=== PATIENT | female | born 1970 | race African-American/Black ===

== ENCOUNTER 2016-07-30 10:48 | Emergency (ER) | payer MEDICARE ==
[~2016-07-30] VITALS: Ht 162.6 cm; Wt 108.0 kg
[2016-07-30 11:07] VITALS: BP 186/104
[2016-07-30] MEDS ORDERED: ERYT1OIN6 EACHEYE (12:14)
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
== END 2016-07-30 12:21 | disposition home or self-care (01) ==
LOC: ER 10:48
DX: H10.33 Unspecified acute conjunctivitis, bilateral (principal); F31.9 Bipolar disorder, unspecified; I10 Essential (primary) hypertension; F17.210 Nicotine dependence, cigarettes, uncomplicated; Z91.018 Allergy to other foods
CPT/HCPCS: 99283

== ENCOUNTER 2019-03-15 01:54 | Emergency (ER) | payer MEDICARE ==
[~2019-03-15] VITALS: Ht 172.7 cm; Wt 108.0 kg
[~2019-03-15 01:54] MED LIST: ERYT1OIN6 EACHEYE
[2019-03-15] MEDS ORDERED: cloNIDine HCL 0.1 MG TABLET PO ONE (03:00)
[2019-03-15] MEDS ORDERED: TRAM50TA PO (03:02)
[2019-03-15] MEDS ORDERED: NAPR-683 PO (03:02)
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
[2019-03-15 03:35] VITALS: BP 171/96
--- NOTE | 2019-03-15 03:35 | RAD ---
KNEE LEFT 3V History: Knee pain. Swelling. Technique: 3 views left knee. Comparison: None. Findings: Normal alignment. No fracture. Mild to moderate medial and patellofemoral compartment DJD with marginal osteophyte formation and joint space narrowing. Small knee joint effusion. Anterior knee soft tissue swelling. Patellar enthesophytes. Impression: 1. No acute osseous abnormality. Anterior knee soft tissue swelling. 2. Small knee joint effusion. 3. Mild to moderate knee DJD. Electronically signed by: Presley iLndsay DO (03/15/2019 3:33 AM) [facility]
== END 2019-03-15 03:35 | disposition home or self-care (01) ==
LOC: ER 01:54
DX: S89.92XA Unspecified injury of left lower leg, initial encounter (principal); F31.9 Bipolar disorder, unspecified; I10 Essential (primary) hypertension; Z91.018 Allergy to other foods; W18.39XA Other fall on same level, initial encounter; Y93.89 Activity, other specified; Y92.89 Other specified places as the place of occurrence of the external cause; Y99.8 Other external cause status
CPT/HCPCS: 29505; 73562; 99284